=== PATIENT | female | born 1945 | race Caucasian/White ===

== ENCOUNTER 2019-05-02 09:53 | Inpatient (IN) ==
[2019-05-02] MEDS ORDERED: TYLENOL PO PRN (13:38)
[2019-05-02] MEDS ORDERED: DUONEB (A & A) INH PRN (13:42)
--- NOTE | 2019-05-02 14:13 | HISTORY AND PHYSICAL ---
HISTORY OF PRESENT ILLNESS: Ms. Wolfe is a 74-year-old patient of Dr. Carolina Delgado. She says for 4 or 5 days she has felt bad, cough, greenish sputum, increased dyspnea, feels like she has had subjective fever and chills and went to see Dr. Delgado and was told she had pneumonia. Her O2 saturations were low and so sent here to the hospital. PAST MEDICAL HISTORY: 1. Coronary artery disease. Fifteen years ago approximately, she had a myocardial infarction. She had some stents placed at that time. She reports that she had some inferior damage done. She does not gives much report of paroxysmal nocturnal dyspnea or orthopnea, but she has had a little more swelling in her ankles in the last couple weeks. 2. Hypertension. 3. Hypercholesterolemia. SURGICAL HISTORY: Had tubal years ago and a left knee surgery, I think the anterior cruciate was torn. FAMILY HISTORY: Unremarkable. She does not give a history of cardiac or pulmonary issues. ALLERGIES: Apparently allergic to codeine, sulfa, penicillin, nickel, shellfish. DIAGNOSTIC STUDIES: She reports she has had a couple test on her heart fairly recently by her lacrosse player, who is in [place]. She had an MRI of lumbar spine on 04/28/2016. She had a right foraminal disk herniation, L4-5. No definite change in bulging disk with central disk herniation, L5-S1, multilevel degenerative disk disease. Bone densitometry done on 01/12/2018: Normal bone mineral density in the lumbar spine. Osteopenia of the hips consistent with increased fracture risk. On 03/27/2015 she had abdominal and pelvic CT, and that was for diverticulosis. She had a CT of the chest done in December 2017, which revealed COPD. Renal ultrasound in April 2014 with no evidence of obstructive uropathy. Shoulder x-ray in 2013 which is negative. REVIEW OF SYSTEMS: General: No weight gain or loss. She reports subjective fever and chills. HEENT: No change in vision or hearing acuity, but just a lot of upper respiratory drainage, greenish sputum, and increased cough. Respiratory: As above. Cardiovascular: No chest pain or tachy palpitation. Gastrointestinal and Genitourinary: No change in bowels or gross hematuria or dysuria. Musculoskeletal/Neurologic: No focal complaints. Endocrinologic/hematologic: No significant history. PHYSICAL EXAMINATION: GENERAL: A well-developed, well-nourished white female, awake, alert, oriented x3. Pleasant. HEENT: Pupils are equal and round. Conjunctiva pink. Sclerae clear. Oral nasal exam without any lesions. Postnasal drainage reported. LUNGS: Clear in all lung rudolph. NECK: CVP less than 6 cm. CARDIOVASCULAR: Regular rhythm and rate without murmur or S3. ABDOMEN: Soft. SKIN: Warm and dry. No pedal edema at this time. LABORATORY DATA: Pending. ASSESSMENT AND PLAN: 1. Upper respiratory congestion, postnasal drainage, acute bronchial irritation, possible pneumonia. We will see the results on the chest x-ray. We will put her on Levaquin 750 mg daily p.o. We will put her on guaifenesin ER 1200 mg twice a day, give her DuoNeb q.4 h. while awake and then q.2 h. p.r.n., and put her on a steroid inhaler. We will use Symbicort 80 mg 2 puffs twice a day. Repeat another chest x-ray in the morning, portable. Right now, she has acute hypoxemia. We will see if that improves. She may require O2. We will see how we do. 2. History of coronary artery disease. I think she has had an echocardiogram probably recently by her lacrosse player. We will see if we can obtain that information. If not, we may want to get an echocardiogram to look at her left ventricular function. 3. Hypertension. Aware. 4. Hypercholesterolemia. We will check general lab. We will check T4, TSH, B12, and folate. 5. We will put her on a regular heart healthy diet. cc: Henri Ulloa MD
--- NOTE | 2019-05-02 14:26 | Diag Imaging Result Doc PS360 ---
CHEST-2 VIEWS - 05/02/2019 INDICATION: hypoxia COMPARISON: 03/27/2015 FINDINGS: There is some ill-defined infiltrate in the lung bases bilaterally worse at the right middle lobe. Lungs are hyperexpanded compatible with COPD. Heart size is normal. No pneumothorax or pleural effusion. IMPRESSION: Ill-defined bibasilar infiltrates suggesting pneumonia, although pulmonary edema or fibrosis are also possible. Electronically signed by Evans Smith 05/02/2019 2:23 PM
[2019-05-02] MEDS ORDERED: ZOFRAN IV PRN (14:30)
[2019-05-02 14:39] LABS: BASO# 0.02 X1000 (0.0-0.2); BASO% 0.1 % (0.0-0.8); HEMATOCRIT 37.3 % (37.0-47.0); HEMOGLOBIN 12.3 g/dL (12.0-16.0); IMM GRAN# 0.05 X1000 (0.0-0.04); IMM GRAN% 0.3 % (0.0-0.5); LYMPH# 1.49 X1000 (1.2-3.4); LYMPH% 8.7 % (20.5-51.1); MCV 97.1 FL (81-99); MONO# 2.13 X1000 (0.11-0.59); MONO% 12.5 % (1.7-9.3); MPV 9.8 FL (7.4-10.4); NEUT# 13.41 X1000 (1.4-6.5); NEUT% 78.4 % (42.2-75.2); PLT 283 X1000 (130-400); RBC 3.84 XMIL (4.2-5.4); RDW 12.8 % (11.5-14.5)
[2019-05-02] MEDS: MUCINEX PO SCH (15:00)
[2019-05-02] MEDS: LEVAQUIN PO SCH (15:01)
[2019-05-02 15:10] LABS: ALB/GLOB RATIO 0.9; ALBUMIN 3.2 g/dL (3.5-5.0); CALCIUM 9.4 mg/dL (8.8-10.2); CREATININE 1.5 mg/dL (0.5-0.9); POTASSIUM 4.3 mmol/L (3.5-5.1); TOTAL BILIRUBIN 0.3 mg/dL (0.20-1.00); TOTAL PROTEIN 6.7 g/dL (6.3-8.3)
[2019-05-02] MEDS: NS 1,000 ML IV SCH (16:00)
[2019-05-02] MEDS: DUONEB (A & A) INH SCH ×2 (16:17→19:30)
[2019-05-02] MEDS: SYMBICORT 80/4.5 MICROGM INHALER INH SCH (19:30)
[2019-05-02] MEDS: ULTRAM PO SCH (22:08)
[2019-05-03] MEDS: DUONEB (A & A) INH SCH ×7 (00:34→23:13)
[2019-05-03 00:36] LABS: URINE SOURCE CLEAN CATCH
[2019-05-03 00:42] LABS: BILIRUBIN URINE NEGATIVE (NEGATIVE); BLOOD URINE NEGATIVE (NEGATIVE); COLOR YELLOW; GLUCOSE URINE NEGATIVE (NEGATIVE); KETONE URINE TRACE mg/dL (NEGATIVE); LEUKOCYTES URINE NEGATIVE (NEGATIVE); NITRITE URINE NEGATIVE (NEGATIVE); PROTEIN URINE 70 mg/dL (NEGATIVE); SP GRAVITY URINE 1.019; TURBIDITY URINE CLEAR (CLEAR); UROBILINOGEN URINE NORMAL (NORMAL)
[2019-05-03 00:56] LABS: UR EPITHELIAL CELLS <10 /HPF (<10); URINE BACTERIA NEGATIVE /HPF; URINE WBC <10 /HPF (<10); URINE YEAST NONE SEEN
[2019-05-03 00:57] LABS: URINE CASTS NONE SEEN; URINE CRYSTALS NONE SEEN; URINE SMALL ROUND CELLS NONE SEEN
[2019-05-03] MEDS: MUCINEX PO SCH ×2 (01:04→14:04)
[2019-05-03 07:38] LABS: EOS# 0.01 X1000 (0.0-0.7); EOS% 0.1 % (0.0-10.0); HEMATOCRIT 33.6 % (37.0-47.0); HEMOGLOBIN 11.2 g/dL (12.0-16.0); IMM GRAN# 0.05 X1000 (0.0-0.04); IMM GRAN% 0.3 % (0.0-0.5); LYMPH# 1.12 X1000 (1.2-3.4); LYMPH% 7.4 % (20.5-51.1); MCH 32.2 PG (27-31); MCHC 33.3 g/dL (33-37); MCV 96.6 FL (81-99); MONO# 2.01 X1000 (0.11-0.59); MONO% 13.2 % (1.7-9.3); NEUT# 12.04 X1000 (1.4-6.5); PLT 264 X1000 (130-400); RBC 3.48 XMIL (4.2-5.4); RDW 12.7 % (11.5-14.5); WBC 15.23 X1000 (4.8-10.8)
[2019-05-03 07:45] LABS: ALB/GLOB RATIO 0.6; ALBUMIN 2.5 g/dL (3.5-5.0); CALCIUM 9.2 mg/dL (8.8-10.2); CREATININE 1.2 mg/dL (0.5-0.9); POTASSIUM 4.1 mmol/L (3.5-5.1); TOTAL BILIRUBIN 0.26 mg/dL (0.20-1.00); TOTAL PROTEIN 6.8 g/dL (6.3-8.3)
--- NOTE | 2019-05-03 07:45 | Diag Imaging Result Doc PS360 ---
CHEST-PORTABLE - 05/03/2019 INDICATION: Pneumonia COMPARISON: 05/02/2019 FINDINGS: There is worsening infiltrate in the right lung base most compatible with pneumonia. Heart size and pulmonary vascularity remains top normal. No pneumothorax or pleural effusion. IMPRESSION: Worsening right basilar pneumonia. Electronically signed by Evans Smith 05/03/2019 7:43 AM
[2019-05-03] MEDS: SYMBICORT 80/4.5 MICROGM INHALER INH SCH ×2 (07:46→19:16)
[2019-05-03 07:53] LABS: FREE T4 1.37 ng/dL (0.93-1.70); TSH 0.97 uIUmL (0.27-4.20)
[2019-05-03] MEDS: NS 1,000 ML IV SCH (09:00)
[2019-05-03] MEDS: ULTRAM PO SCH ×2 (09:01→21:23)
[2019-05-03] MEDS: LEVAQUIN PO SCH (09:02)
[2019-05-03] MEDS ORDERED: NICODERM PATCH TD PRN (11:33)
[2019-05-03] MEDS: COREG PO SCH (12:15)
[2019-05-03] MEDS: NORVASC PO SCH (12:15)
--- NOTE | 2019-05-03 12:57 | PROGRESS NOTE ---
DATE: 05/03/2019 SUBJECTIVE: Patient is resting comfortably in bed. She is still short of breath. She is not complaining of chest pain. She is coughing up green phlegm. WBC decreased from 17 to 15. I will continue with the same management. No fever or chills. She has a history of smoking. It looks like she smokes at least 1 pack a day for the past 57 years. OBJECTIVE: Vital Signs: Temperature 98.1 degrees, pulse 70, respiratory rate 19, blood pressure 137/78, and oxygen saturation 98 on 2 L of nasal cannula. HEENT: Head normocephalic. No trauma. PERRLA. Neck: Supple. No JVD. No masses. Central trachea. Chest: Decreased breath sounds at the bases with some prolonged expiratory phase. There is some crepitus on the right side with rhonchi, mild end expiratory wheezing at the right upper thoracic area. Abdomen: Soft, nontender, and nondistended. No hepatosplenomegaly. Extremities: Trace edema. No clubbing. No cyanosis. Neurological: The patient is alert and oriented x3. No focal deficits. LABORATORY: WBC 15.2, hemoglobin 11.2, hematocrit 33.6, and platelets 264,000. Sodium 132, potassium 4.1, chloride 96, bicarbonate 25, BUN 39, creatinine 1.2, glucose 90, calcium 9.2, AST 12, ALT 10, alkaline phosphatase 121, and albumin 2.5. ASSESSMENT AND PLAN: 1. Acute respiratory failure likely secondary to right lower lobe pneumonia and COPD, continue breathing treatment. Antibiotics. Oxygen supplementation. She feels a little bit better. We will continue with same management. 2. Right lower lobe pneumonia. This patient has been placed on levofloxacin, her WBC decreased from 17 to 15. We will continue with the same management for now. 3. History of coronary artery disease, stable. She is not complaining of chest pain. 4. Hypertension, aware. Blood pressure has been stable. I will put this patient back on some of her medications including carvedilol and amlodipine. 5. Dyslipidemia. Continue with pravastatin. cc: Mak Phillips MD MTDD
[2019-05-04] MEDS: MUCINEX PO SCH ×2 (02:09→14:02)
[2019-05-04] MEDS: DUONEB (A & A) INH SCH ×4 (03:27→15:29)
[2019-05-04] MEDS: SYMBICORT 80/4.5 MICROGM INHALER INH SCH ×2 (08:15→19:12)
[2019-05-04] MEDS: PRAVACHOL PO SCH (08:42)
[2019-05-04] MEDS: COREG PO SCH (08:42)
[2019-05-04] MEDS: ULTRAM PO SCH ×2 (08:42→22:42)
[2019-05-04] MEDS: ASPIRIN PO SCH (08:43)
[2019-05-04] MEDS: LEVAQUIN PO SCH (08:43)
[2019-05-04] MEDS: NORVASC PO SCH (08:45)
[2019-05-04] MEDS ORDERED: NORVASC PO SCH (09:00)
[2019-05-04 09:15] LABS: BASO# 0.01 X1000 (0.0-0.2); BASO% 0.1 % (0.0-0.8); EOS# 0.01 X1000 (0.0-0.7); EOS% 0.1 % (0.0-10.0); HEMATOCRIT 33.6 % (37.0-47.0); HEMOGLOBIN 11.1 g/dL (12.0-16.0); IMM GRAN# 0.08 X1000 (0.0-0.04); IMM GRAN% 0.6 % (0.0-0.5); LYMPH# 0.97 X1000 (1.2-3.4); LYMPH% 7.8 % (20.5-51.1); MCH 31.9 PG (27-31); MCV 96.6 FL (81-99); MONO# 1.54 X1000 (0.11-0.59); MONO% 12.4 % (1.7-9.3); MPV 10.5 FL (7.4-10.4); NEUT# 9.81 X1000 (1.4-6.5); PLT 270 X1000 (130-400); RBC 3.48 XMIL (4.2-5.4); RDW 12.7 % (11.5-14.5); WBC 12.42 X1000 (4.8-10.8)
[2019-05-04 09:43] LABS: CALCIUM 9.3 mg/dL (8.8-10.2); CREATININE 1.3 mg/dL (0.5-0.9); POTASSIUM 3.8 mmol/L (3.5-5.1)
--- NOTE | 2019-05-04 10:16 | Diag Imaging Result Doc PS360 ---
EXAM: CHEST-2 VIEWS HISTORY: hypoxia TECHNIQUE: Chest two views COMPARISON: 05/03/2019 FINDINGS: There are increased interstitial markings. These are less pronounced than on the prior study. There are small pleural effusions. No cardiomegaly. IMPRESSION: Mild interval improvement. Electronically signed by Ariel Urbina 05/04/2019 10:14 AM
--- NOTE | 2019-05-04 10:17 | PROGRESS NOTE ---
DATE: 05/04/2019 SUBJECTIVE: Patient is resting comfortably in bed. She is feeling better today. She is still coughing up some phlegm. WBC decreased from 17 to 15 and today is 12. I will continue with the same management for now. I will get a new x-ray, and I will evaluate this patient for the possibility of getting home O2 at home. She has a strong history of smoking for the past 57 years, this patient has COPD. OBJECTIVE: Vital Signs: Temperature 98.1 degrees, pulse 69, respiratory rate 18, blood pressure 141/57, oxygen saturation 95% on 3 L of nasal cannula. HEENT: Head normocephalic, no trauma. PERRLA. Neck: Supple. No JVD. No masses. Central trachea. Chest: Decreased breath sounds at the bases with prolonged expiratory phase. She has some crepitus and mild rhonchi on the right base. No wheezing today. Abdomen: Soft, nontender, nondistended. No hepatosplenomegaly. Extremities: Trace edema. No clubbing. No cyanosis. Neurological: This patient is alert. She is oriented x3. No focal deficits. DIAGNOSTIC STUDIES: WBC 12.4, hemoglobin 11.1, hematocrit 33.6, platelets 270,000. Sodium 135, potassium 3.8, chloride 97, bicarbonate 25, BUN 31, creatinine 1.3, glucose 90, calcium 9.3. ASSESSMENT AND PLAN: 1. Acute respiratory failure, secondary to right lower lobe pneumonia and chronic obstructive pulmonary disease, previous CT scan showed COPD at least since 2012. Continue breathing treatment, antibiotics, oxygen supplementation. She feels better today. I will get a new x-ray, and I will evaluate this patient for the possibility of oxygen at home. 2. Right lower lobe pneumonia. WBC is trending down from 17 to 15 and today is 12. We will continue with levofloxacin and the same treatment for now. 3. History of coronary artery disease, stable. She is not complaining of chest pain. 4. Hypertension. Aware. Blood pressure has been stable. 5. Dyslipidemia. Continue with pravastatin. 6. Tobacco abuse. This patient has been highly advised every day about tobacco use. She has been smoking for at least 57 years. Currently, she is smoking a pack a day. I will continue with daily cessation education. cc: Mak Phillips MD [facility]
[2019-05-04] MEDS ORDERED: LASIX IV ONE (11:39)
[2019-05-04] MEDS ORDERED: HYZAAR 50/12.5 MG PO SCH (11:45)
[2019-05-04] MEDS ORDERED: LASIX PO ONE (14:09)
[2019-05-04] MEDS ORDERED: XOPENEX NEB INH PRN (17:39)
[2019-05-04] MEDS ORDERED: ATROVENT NEB INH PRN (17:40)
[2019-05-04] MEDS: ATROVENT NEB INH SCH ×2 (19:12→23:10)
[2019-05-04] MEDS: XOPENEX NEB INH SCH ×2 (19:12→23:10)
[2019-05-05] MEDS: MUCINEX PO SCH ×2 (01:01→13:08)
[2019-05-05] MEDS: ATROVENT NEB INH SCH ×3 (05:41→11:58)
[2019-05-05] MEDS: XOPENEX NEB INH SCH ×3 (05:42→11:58)
[2019-05-05 07:37] LABS: BASO# 0.02 X1000 (0.0-0.2); BASO% 0.2 % (0.0-0.8); EOS# 0.02 X1000 (0.0-0.7); EOS% 0.2 % (0.0-10.0); HEMATOCRIT 32.7 % (37.0-47.0); HEMOGLOBIN 10.9 g/dL (12.0-16.0); IMM GRAN# 0.13 X1000 (0.0-0.04); IMM GRAN% 1.1 % (0.0-0.5); LYMPH# 1.31 X1000 (1.2-3.4); LYMPH% 11.4 % (20.5-51.1); MCH 31.9 PG (27-31); MCHC 33.3 g/dL (33-37); MCV 95.6 FL (81-99); MONO# 1.52 X1000 (0.11-0.59); MONO% 13.2 % (1.7-9.3); MPV 9.9 FL (7.4-10.4); NEUT# 8.53 X1000 (1.4-6.5); NEUT% 73.9 % (42.2-75.2); PLT 281 X1000 (130-400); RBC 3.42 XMIL (4.2-5.4); RDW 12.8 % (11.5-14.5); WBC 11.53 X1000 (4.8-10.8)
[2019-05-05] MEDS: SYMBICORT 80/4.5 MICROGM INHALER INH SCH (07:59)
[2019-05-05 08:04] LABS: CREATININE 1.4 mg/dL (0.5-0.9); POTASSIUM 3.6 mmol/L (3.5-5.1)
--- NOTE | 2019-05-05 08:44 | Diag Imaging Result Doc PS360 ---
EXAM: CHEST-PORTABLE INDICATION: SOB TECHNIQUE: One view COMPARISON: 05/04/2019 FINDINGS: Bilateral small pleural effusions are again noted. There may have been slight increase in the effusion on the right. There is slight increased opacity at the right lower lung zone as compared to the previous study. No new consolidation is identified. Cardiac silhouette is stable. IMPRESSION: Slight increased opacity of the infiltrate at the right lower lung zone and likely slight increase in the small right effusion. Electronically signed by Enrique Cason 05/05/2019 8:42 AM
[2019-05-05] MEDS: PRAVACHOL PO SCH (08:49)
[2019-05-05] MEDS: LEVAQUIN PO SCH (08:49)
[2019-05-05] MEDS: COREG PO SCH (08:49)
[2019-05-05] MEDS: ASPIRIN PO SCH (08:49)
[2019-05-05] MEDS: ULTRAM PO SCH (08:49)
[2019-05-05] MEDS: NORVASC PO SCH (08:49)
[2019-05-05] MEDS ORDERED: HYZAAR 50/12.5 MG PO SCH (09:00)
[2019-05-05] MEDS ORDERED: PNEUMOVAX 23 IM ONE (11:58)
[2019-05-05 12:14] VITALS: BP 119/57
--- NOTE | 2019-05-06 00:39 | DISCHARGE SUMMARY ---
ADMISSION DATE: 05/02/2019 DISCHARGE DATE: 05/05/2019 DISCHARGE DIAGNOSES: 1. Acute respiratory failure. 2. Right lower lobe pneumonia. 3. Chronic obstructive pulmonary disease. 4. History of coronary artery disease. 5. Hypertension. 6. Dyslipidemia. 7. Tobacco abuse. PROCEDURES PERFORMED: 1. Chest x-ray dated 05/02/2018. Impression: Ill-defined bibasilar infiltrates suggesting pneumonia, although pulmonary edema or fibrosis are also possible. 2. Chest x-ray dated 05/03/2019. Impression: Worsening right basilar pneumonia. 3. X-ray dated 05/03/2019, mild interval improvement. 4. Chest x-ray dated 05/05/2019, slightly increase in opacity of the infiltrate at the right lower lung zone. HOSPITAL COURSE: A 74-year-old female with a past medical history of coronary artery disease, hypertension, hypercholesterolemia, and COPD, tobacco abuse, presented to the emergency department and was admitted on 05/02/2019 due to shortness of breath, cough, and greenish sputum. She is a patient of Dr. Carolina Delgado, and apparently, she went to see Dr. Delgado and she was told she had pneumonia and her oxygen saturation was low, and she was sent to the emergency department. Her oxygen saturation was dropping without oxygen in the emergency department. Laboratory showed a leukocyte count of 17,000, mild elevation of BUN and creatinine, which is chronic, and a proBNP of 2659. Chest x-ray showed bilateral infiltrate but mostly on the right side, suggestive of pneumonia. She was hospitalized with telemetry and oxygen supplementation as well as antibiotics, breathing treatment. The white blood cells was dropping on a daily basis, and she was feeling better on a daily basis as well. She was not taking treatment for her COPD, which has been documented since 2013, so I will discharge this patient with breathing treatment to take at home and, also, I recommended to follow up with Pulmonary Department as an outpatient as well. We had a large conversation on a daily basis about tobacco use and abuse, and I did daily cessation education on this patient. Her was always at the bedside. Today, this patient is feeling much better. She has no wheezing. She does have prolonged expiratory phase and some rhonchi at the right base. She will be discharged home with oxygen. She will continue with antibiotics, breathing treatments at home for her COPD, and follow up with her primary care doctor, and also, follow up with Pulmonary Department. DISCHARGE PHYSICAL EXAMINATION: Vital signs: Temperature 97.9 degrees, pulse 77, respiratory rate 20, blood pressure 118/57, oxygen saturation 94% on 3 L of nasal cannula. HEENT: Head normocephalic, atraumatic. PERRLA. Neck: Supple. No JVD. No masses. Central trachea. Chest: Decreased breath sounds mostly at the bases with prolonged expiratory phase and some rhonchi at the right base. No wheezing. Abdomen: Soft, nontender, nondistended. No hepatosplenomegaly. Extremities: Trace edema. No clubbing. No cyanosis. Neurological: The patient is alert and oriented x3. No focal deficits. LABORATORY: WBC 11.5, hemoglobin 10.9, hematocrit 32.7, platelets 281,000. Sodium 133, potassium 3.6, chloride 95, bicarbonate 26, BUN 29, creatinine 1.4. Glucose 105, calcium 9. DISCHARGE MEDICATIONS: Ventolin HFA 2 puff inhaled q.6 hours as needed, amlodipine 5 mg p.o. daily, aspirin 81 mg p.o. daily, Coreg 12.5 mg p.o. daily, Mucinex 1200 mg p.o. q.12 hours, Atrovent HFA 2 puff inhaler 4 times a day, Levaquin 750 mg p.o. daily, losartan- hydrochlorothiazide 100-25 mg tablet p.o. daily, pravastatin 10 mg p.o. daily, and tramadol 50 mg p.o. b.i.d. TIME SPENT: Discharging this patient and explaining everything about COPD and talking about smoking cessation, around 40 minutes. cc: Mak Phillips MD
== END 2019-05-05 14:31 | disposition home or self-care (01) | DRG 193 ==
LOC: DIRADM → OBSVTOIN 09:53 → SUATTDRO 09:53 → 3N 11:55
PROVIDERS: ATTEND Internal Medicine

== ENCOUNTER 2019-10-20 12:11 | Observation (INO) ==
[2019-10-20] MEDS ORDERED: SALINE LOCK IV FLUID XX ONE (12:46)
[2019-10-20 13:25] LABS: BASO# 0.02 X1000 (0.0-0.2); BASO% 0.3 % (0.0-0.8); EOS# 0.05 X1000 (0.0-0.7); EOS% 0.7 % (0.0-10.0); HEMATOCRIT 30.3 % (37.0-47.0); HEMOGLOBIN 9.5 g/dL (12.0-16.0); IMM GRAN# 0.03 X1000 (0.0-0.04); IMM GRAN% 0.4 % (0.0-0.5); LYMPH# 1.71 X1000 (1.2-3.4); LYMPH% 22.7 % (20.5-51.1); MCH 30.9 PG (27-31); MCHC 31.4 g/dL (33-37); MCV 98.7 FL (81-99); MONO# 0.73 X1000 (0.11-0.59); MONO% 9.7 % (1.7-9.3); MPV 9.1 FL (7.4-10.4); NEUT% 66.2 % (42.2-75.2); PLT 315 X1000 (130-400); RBC 3.07 XMIL (4.2-5.4); RDW 12.9 % (11.5-14.5); WBC 7.54 X1000 (4.8-10.8)
[2019-10-20 13:43] LABS: ALBUMIN 3.3 g/dL (3.5-5.0); CALCIUM 8.7 mg/dL (8.8-10.2); CREATININE 1.6 mg/dL (0.5-0.9); POTASSIUM 4.4 mmol/L (3.5-5.1); TOTAL BILIRUBIN 0.25 mg/dL (0.20-1.00); TOTAL PROTEIN 6.6 g/dL (6.3-8.3)
[2019-10-20] MEDS ORDERED: PRAVACHOL PO SCH (21:00)
[2019-10-20 21:17] LABS: INR 1.07
[2019-10-20] MEDS ORDERED: NS 500 ML ONE (21:17)
[2019-10-20 21:18] LABS: PTT 29.4 Seconds (22.3-41.8)
[2019-10-20] MEDS: ULTRAM PO SCH (22:08)
[2019-10-20] MEDS: COREG PO SCH (22:11)
[2019-10-21] MEDS: ULTRAM PO SCH (08:31)
[2019-10-21] MEDS: COREG PO SCH (08:31)
[2019-10-21] MEDS ORDERED: HYZAAR 50/12.5 MG PO SCH (09:00)
[2019-10-21] MEDS ORDERED: NORVASC PO SCH (09:00)
[2019-10-21] MEDS ORDERED: BIOTIN PO SCH (09:00)
[2019-10-21 11:32] VITALS: BP 131/51
--- NOTE | 2019-11-17 12:08 | HISTORY AND PHYSICAL ---
DIAGNOSIS: Laceration to the dorsum of the right hand with continued bleeding. The patient is on chronic anticoagulation therapy with Plavix. 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 The hand was sutured in the office on the but it continued to bleed and with multiple dressing changes during the night. The patient has continued her Plavix. She will be admitted with holding of the Plavix. She will get 2 units of fresh frozen plasma and ideally, the wound will cease to bleed so she does not have to go to the operating room. PAST HISTORY: She has cardiac disease and is on Plavix for this. Her skin is quite thin and paper-like and it was more of a rip on an appliance at home than a laceration. It continued to bleed. There is also a small squamous lesion on the dorsum of right ham adjacent to the injury. PHYSICAL EXAMINATION: GENERAL: Physical exam reveals an elderly, white female in no discomfort. HEAD AND NECK EXAMINATION: She is normocephalic, atraumatic. Pupils equal and reactive. Ears, nose, and throat are negative. CHEST: Clear. CARDIAC: Negative. ABDOMEN: Soft and protuberant. : Negative. NEUROLOGICAL: Intact. The wound is approximately 1.5 cm long on the dorsum of the right hand over the 4th and 5th metatarsals. It is actively oozing in spite of the sutures that were placed yesterday. PLAN: Compression dressing, hand elevation, 2 units of fresh frozen plasma. Ideally, in the absence of the Plavix, this will make the bleeding stop. The plan is for discharge home tomorrow. cc: Henrry Clayton MD
== END 2019-10-21 12:32 | disposition home or self-care (01) ==
LOC: DIRADM → EDIPHOLD 12:23 → 4N 16:17
PROVIDERS: ADMIT Surgery; ATTEND Surgery